=== PATIENT | male | born 1980 | race Caucasian/White ===

== ENCOUNTER 2023-12-23 14:54 | Inpatient (IN) | payer MEDICAID ==
[~2023-12-23] VITALS: Ht 190.5 cm; Wt 102.1 kg
[2023-12-23 17:20] LABS: Urine Bacteria None Seen /hpf (None Seen)
[2023-12-23] MEDS: SODIUM CHLORIDE 0.9% 1,000 ML IVB ONE (17:51)
[2023-12-23] MEDS: METOCLOPRAMIDE HCL 5MG/ml INJ 2ml VIAL IV ONE (17:52)
[2023-12-23 17:53] VITALS: PULSE 71; RESP 19; O2SAT 97
[2023-12-23 18:07] LABS: Basophils # (auto) 0 10 ^3/uL (0-0.2); Basophils % (auto) 0.3 % (0.0-2.0); Eosinophils # (auto) 0.1 10 ^3/uL (0-0.8); Eosinophils % (auto) 0.4 % (0.0-7.0); Hematocrit 47.4 % (41.0-53.0); Lymphocytes # (auto) 2.6 10 ^3/uL (0.4-5.4); Mean Corpuscular Hemoglobin 30.8 pg (28.0-32.0); Mean Corpuscular Hgb Conc. 33.8 g/dL (32.0-36.0); Mean Corpuscular Volume 91.2 fL (80.0-100.0); Monocytes # (auto) 1.5 10 ^3/uL (0-1.3); Monocytes % (auto) 8.8 % (0.0-12.0); Neutrophils # (auto) 13.1 10 ^3/uL (1.6-8.6); Neutrophils % (auto) 75.5 % (37.0-80.0); Red Blood Cells 5.19 10^6/uL (4.5-5.90); Red Cell Distribution Width 12.6 % (11.8-14.3); White Blood Cell 17.3 10^3/uL (4.4-10.8)
[2023-12-23 18:13] LABS: Urine Blood Negative /uL (Negative); Urine Clarity Clear (Clear); Urine Color Yellow (Yellow); Urine Protein, UAD TRACE (Negative); Urine Specific Gravity 1.022 (1.001-1.035); Urine Urobilinogen Normal (Negative); Urine WBC 1 /hpf (0 - 3)
[2023-12-23 18:24] LABS: Alanine Aminotransferase 39 U/L (7-40); Alkaline Phosphatase 75 U/L (46-116); Calcium 10.3 mg/dL (8.7-10.4); Carbon Dioxide 32 mmol/L (20-30); Chloride 103 mmol/L (98-107); Glucose 102 mg/dL (74-106); Lipase 25 U/L (12-53); Potassium 4.2 mmol/L (3.5-5.1)
[2023-12-23 18:25] LABS: Albumin 4.7 g/dL (3.2-4.8); Anion Gap 4 (5-15); Aspartate Aminotransferase 24 U/L (13-40); BUN/Creatinine Ratio 10.8 (10.0-20.0); Bilirubin, Total 0.8 mg/dL (0.2-1.0); Blood Urea Nitrogen 10 mg/dL (9-23); Magnesium 1.7 mg/dL (1.6-2.6); Sodium 139 mmol/L (136-145); Total Protein 7.3 g/dL (5.7-8.2)
[2023-12-23 18:35] LABS: INR 1.19 (0.9-1.15); Partial Thromboplastin Time 34.1 SEC (24.5-34.5); Prothrombin Time 12.4 sec (9.3-11.8)
[2023-12-23] MEDS: cefTRIAXone 1GM/50ML D5W 50 ML IV ONE (18:58)
[2023-12-23] MEDS: metroNIDAZOLE 500MG/100ML 100 ML IV ONE (18:58)
[2023-12-23] MEDS ORDERED: ONDANSETRON HCL 4 MG/2 ML VIAL IV PRN (21:00)
[2023-12-23] MEDS: SODIUM CHLORIDE 0.9% 1,000 ML IV SCH (21:29)
[2023-12-24] VITALS (8 sets, daily range): BP systolic 115–134; BP diastolic 61–75; PULSE 67–86; RESP 16–18; TEMP 97.6–99.2; O2SAT 93–97
[2023-12-24] MEDS: MORPHINE SULFATE INJ 2 MG/ml SYRG IV PRN (01:31)
[2023-12-24] MEDS: metroNIDAZOLE 500MG/100ML 100 ML IV SCH (03:24)
[2023-12-24 06:03] LABS: Basophils # (auto) 0.1 10 ^3/uL (0-0.2); Basophils % (auto) 0.4 % (0.0-2.0); Eosinophils # (auto) 0.2 10 ^3/uL (0-0.8); Eosinophils % (auto) 1.2 % (0.0-7.0); Hematocrit 41.3 % (41.0-53.0); Hemoglobin 13.9 g/dL (13.5-17.5); Lymphocytes # (auto) 3.2 10 ^3/uL (0.4-5.4); Lymphocytes % (auto) 21.6 % (10.0-50.0); Mean Corpuscular Hemoglobin 30.7 pg (28.0-32.0); Mean Corpuscular Hgb Conc. 33.7 g/dL (32.0-36.0); Mean Corpuscular Volume 91.1 fL (80.0-100.0); Monocytes # (auto) 1.7 10 ^3/uL (0-1.3); Monocytes % (auto) 11.8 % (0.0-12.0); Neutrophils # (auto) 9.5 10 ^3/uL (1.6-8.6); Red Blood Cells 4.54 10^6/uL (4.5-5.90); Red Cell Distribution Width 12.4 % (11.8-14.3); White Blood Cell 14.7 10^3/uL (4.4-10.8)
[2023-12-24 06:30] LABS: Alanine Aminotransferase 25 U/L (7-40); Alkaline Phosphatase 62 U/L (46-116); Anion Gap 8 (5-15); Aspartate Aminotransferase 19 U/L (13-40); BUN/Creatinine Ratio 14.3 (10.0-20.0); Bilirubin, Total 0.9 mg/dL (0.2-1.0); Blood Urea Nitrogen 11 mg/dL (9-23); Calcium 9.1 mg/dL (8.5-10.1); Carbon Dioxide 27 mmol/L (20-30); Chloride 105 mmol/L (98-107); Glucose 91 mg/dL (74-106); Potassium 4.2 mmol/L (3.5-5.1); Sodium 140 mmol/L (136-145); Total Protein 5.8 g/dL (5.7-8.2)
[2023-12-24] MEDS: SODIUM CHLORIDE 0.9% 1,000 ML IV SCH (08:36)
[2023-12-24] MEDS ORDERED: AMPICILLIN & SULBACTAM SODIUM 3 GM in SODIUM CHL 0.9% 100 ML IV SCH (11:30)
[2023-12-24] MEDS: PANTOPRAZOLE 40 MG/10 ML VIAL INJ IV ONE (12:38)
[2023-12-24] MEDS: AMPICILLIN & SULBACTAM SODIUM 3 GM in SODIUM CHL 0.9% 100 ML IV SCH (15:42)
[2023-12-24] MEDS ORDERED: cefTRIAXone 1GM/50ML D5W 50 ML IV SCH (19:00)
[2023-12-25] VITALS (8 sets, daily range): BP systolic 106–137; BP diastolic 53–80; PULSE 70–93; RESP 14–18; TEMP 97.5–98.2; O2SAT 95–97
[2023-12-25 06:38] LABS: Basophils # (auto) 0.1 10 ^3/uL (0-0.2); Basophils % (auto) 0.7 % (0.0-2.0); Eosinophils # (auto) 0.4 10 ^3/uL (0-0.8); Eosinophils % (auto) 3.3 % (0.0-7.0); Hematocrit 39.4 % (41.0-53.0); Hemoglobin 13.6 g/dL (13.5-17.5); Lymphocytes # (auto) 2.7 10 ^3/uL (0.4-5.4); Lymphocytes % (auto) 21.9 % (10.0-50.0); Mean Corpuscular Hemoglobin 31.3 pg (28.0-32.0); Mean Corpuscular Hgb Conc. 34.5 g/dL (32.0-36.0); Mean Corpuscular Volume 90.8 fL (80.0-100.0); Monocytes # (auto) 1.3 10 ^3/uL (0-1.3); Monocytes % (auto) 10.9 % (0.0-12.0); Neutrophils # (auto) 7.8 10 ^3/uL (1.6-8.6); Neutrophils % (auto) 63.2 % (37.0-80.0); Red Blood Cells 4.34 10^6/uL (4.5-5.90); Red Cell Distribution Width 12.4 % (11.8-14.3); White Blood Cell 12.4 10^3/uL (4.4-10.8)
[2023-12-25 06:43] LABS: Alanine Aminotransferase 17 U/L (7-40); Alkaline Phosphatase 54 U/L (46-116); Anion Gap 7 (5-15); Aspartate Aminotransferase 17 U/L (13-40); Blood Urea Nitrogen 9 mg/dL (9-23); Calcium 8.9 mg/dL (8.5-10.1); Carbon Dioxide 26 mmol/L (20-30); Chloride 106 mmol/L (98-107); Glucose 107 mg/dL (74-106); Potassium 3.8 mmol/L (3.5-5.1); Sodium 139 mmol/L (136-145)
[2023-12-25 06:44] LABS: Albumin 3.9 g/dL (3.2-4.8); Bilirubin, Total 0.6 mg/dL (0.2-1.0); Total Protein 5.9 g/dL (5.7-8.2)
[2023-12-25] MEDS: PANTOPRAZOLE 40 MG/10 ML VIAL INJ IV ONE (08:25)
[2023-12-25] MEDS: METOCLOPRAMIDE HCL 5MG/ml INJ 2ml VIAL ONE (08:25)
[2023-12-25] MEDS: metroNIDAZOLE 500MG/100ML 100 ML IV ONE ×2 (08:25)
[2023-12-25] MEDS: MORPHINE SULFATE INJ 2 MG/ml SYRG ONE ×4 (08:25)
[2023-12-25] MEDS: cefTRIAXone 1GM/50ML D5W 50 ML IV ONE (08:25)
[2023-12-25] MEDS: PANTOPRAZOLE 40 MG/10 ML VIAL INJ IV SCH (09:24)
[2023-12-25] MEDS ORDERED: fentaNYL CITRATE 100 MCG/2 ML VL ONE (10:54)
[2023-12-25] MEDS ORDERED: MIDAZOLAM HCL 2MG/2ML 2ml VIAL (1mg/ml) ONE (10:55)
[2023-12-25] MEDS ORDERED: PROPOFOL 10 MG/ML 20 ML IV ONE (10:57)
[2023-12-25] MEDS ORDERED: ONDANSETRON HCL 4 MG/2 ML VIAL ONE (10:57)
[2023-12-25] MEDS ORDERED: LIDOCAINE 2% (LOCAL ANESTH.) PF 5ml SDV ONE (10:57)
[2023-12-25] MEDS ORDERED: ACETAMINOPHEN 500 MG TAB PO PRN (11:15)
[2023-12-25] MEDS ORDERED: GLYCOPYRROLATE 0.2 MG/ML 1ML VIAL ONE (11:59)
[2023-12-25] MEDS ORDERED: ONDANSETRON HCL 4 MG/2 ML VIAL IV ONE (12:00)
[2023-12-25] MEDS ORDERED: HYDROmorphone HCL 2 MG/ML VL/or syr IV PRN (12:00)
[2023-12-25] MEDS ORDERED: NEOSTIGMINE 1 MG/ML INJ (10mg/10ML VIAL) ONE (12:20)
[2023-12-25] MEDS: HYDROmorphone HCL 2 MG/ML VL/or syr IV PRN (12:58)
[2023-12-25] MEDS: HYDROcodone-ACET 5/325MG TAB PO PRN (14:29)
[2023-12-25] MEDS: D5W/SOD CHL 0.45%/KCL 20MEQ 1,000 ML IV SCH (16:07)
[2023-12-25] MEDS: metroNIDAZOLE 500MG/100ML 100 ML IV SCH (22:51)
[2023-12-26] VITALS (8 sets, daily range): BP systolic 103–127; BP diastolic 55–76; PULSE 63–84; RESP 14–19; TEMP 97.5–99.1; O2SAT 93–98
[2023-12-26 06:35] LABS: Basophils # (auto) 0.1 10 ^3/uL (0-0.2); Basophils % (auto) 0.7 % (0.0-2.0); Eosinophils # (auto) 0.4 10 ^3/uL (0-0.8); Eosinophils % (auto) 3.6 % (0.0-7.0); Lymphocytes # (auto) 1.8 10 ^3/uL (0.4-5.4); Lymphocytes % (auto) 15.3 % (10.0-50.0); Mean Corpuscular Hemoglobin 31.3 pg (28.0-32.0); Mean Corpuscular Hgb Conc. 34.2 g/dL (32.0-36.0); Mean Corpuscular Volume 91.5 fL (80.0-100.0); Monocytes # (auto) 1.3 10 ^3/uL (0-1.3); Monocytes % (auto) 11.1 % (0.0-12.0); Neutrophils % (auto) 69.3 % (37.0-80.0); Red Blood Cells 4.15 10^6/uL (4.5-5.90); Red Cell Distribution Width 12.6 % (11.8-14.3); White Blood Cell 11.6 10^3/uL (4.4-10.8)
[2023-12-26 06:53] LABS: Alanine Aminotransferase 20 U/L (7-40); Albumin 3.6 g/dL (3.2-4.8); Alkaline Phosphatase 55 U/L (46-116); Anion Gap 6 (5-15); Aspartate Aminotransferase 22 U/L (13-40); BUN/Creatinine Ratio 9.6 (10.0-20.0); Bilirubin, Total 0.5 mg/dL (0.2-1.0); Blood Urea Nitrogen 7 mg/dL (9-23); Calcium 8.8 mg/dL (8.5-10.1); Carbon Dioxide 27 mmol/L (20-30); Chloride 105 mmol/L (98-107); Glucose 106 mg/dL (74-106); Potassium 3.7 mmol/L (3.5-5.1); Sodium 138 mmol/L (136-145); Total Protein 5.7 g/dL (5.7-8.2)
[2023-12-27 01:00] VITALS: BP_SYST 120; BP_SYST 94; BP_DIAS 52; BP_DIAS 66; PULSE 63; PULSE 65; RESP 17; RESP 20; TEMP 98.4; TEMP 98.5; O2SAT 94; O2SAT 99
[2023-12-27 05:00] VITALS: BP_SYST 107; BP_SYST 115; BP_DIAS 59; BP_DIAS 63; PULSE 59; PULSE 64; RESP 18; RESP 19; TEMP 98.2; TEMP 98.3; O2SAT 95; O2SAT 97
[2023-12-27 06:19] LABS: Basophils # (auto) 0.1 10 ^3/uL (0-0.2); Basophils % (auto) 0.7 % (0.0-2.0); Eosinophils # (auto) 0.6 10 ^3/uL (0-0.8); Eosinophils % (auto) 6.1 % (0.0-7.0); Hematocrit 36.7 % (41.0-53.0); Hemoglobin 12.5 g/dL (13.5-17.5); Lymphocytes # (auto) 2.6 10 ^3/uL (0.4-5.4); Lymphocytes % (auto) 26.7 % (10.0-50.0); Mean Corpuscular Hemoglobin 31.3 pg (28.0-32.0); Mean Corpuscular Volume 92.2 fL (80.0-100.0); Monocytes # (auto) 1.3 10 ^3/uL (0-1.3); Monocytes % (auto) 12.8 % (0.0-12.0); Neutrophils # (auto) 5.3 10 ^3/uL (1.6-8.6); Neutrophils % (auto) 53.7 % (37.0-80.0); Red Blood Cells 3.98 10^6/uL (4.5-5.90); Red Cell Distribution Width 12.2 % (11.8-14.3); White Blood Cell 9.8 10^3/uL (4.4-10.8)
[2023-12-27 06:43] LABS: Alanine Aminotransferase 18 U/L (7-40); Albumin 3.6 g/dL (3.2-4.8); Alkaline Phosphatase 51 U/L (46-116); Anion Gap 8 (5-15); Aspartate Aminotransferase 19 U/L (13-40); BUN/Creatinine Ratio 7.7 (10.0-20.0); Bilirubin, Total 0.3 mg/dL (0.2-1.0); Blood Urea Nitrogen 6 mg/dL (9-23); Calcium 8.8 mg/dL (8.5-10.1); Carbon Dioxide 26 mmol/L (20-30); Chloride 106 mmol/L (98-107); Glucose 93 mg/dL (74-106); Potassium 3.8 mmol/L (3.5-5.1); Sodium 140 mmol/L (136-145); Total Protein 5.5 g/dL (5.7-8.2)
[2023-12-27 08:05] VITALS: BP 133/69; PULSE 63; RESP 18; TEMP 98.1; O2SAT 94
[2023-12-27 09:00] VITALS: BP 133/69; PULSE 63; RESP 18; TEMP 98.1; O2SAT 94
[2023-12-27] MEDS ORDERED: AUG875T PO (10:52)
[2023-12-27] MEDS ORDERED: TRAM-626 PO (10:52)
[2023-12-27 12:45] VITALS: BP 133/69; PULSE 63; RESP 18; TEMP 98.1; O2SAT 94
[2023-12-27 13:00] VITALS: BP 107/77; PULSE 60; RESP 17; TEMP 98.1; O2SAT 95
== END 2023-12-27 14:04 | disposition home or self-care (01) | DRG 710 ==
LOC: ER 14:54 → OVERFLOW 20:55 → WEST WING 21:01
PROVIDERS: ADMIT Nurse Practitioner; ATTEND Internal Medicine
PROC: 0FT44ZZ Resection of Gallbladder, Percutaneous Endoscopic Approach (ICD-10-PCS; principal; 2023-12-25 10:55)
DX: A41.9 Sepsis, unspecified organism (principal); K80.00 Calculus of gallbladder with acute cholecystitis without obstruction; K66.0 Peritoneal adhesions (postprocedural) (postinfection)
CPT/HCPCS: 36415; 74176; 76705; 78226; 80053; 81001; 83605; 83690; 83735; 84484; 85025; 85610; 85730; 86850; 86900; 86901; 87040; 93005; C9113; G0378; J2001; J2250; J2405; J2704; J3490